=== PATIENT | male | born 1965 | race Caucasian/White ===

== ENCOUNTER 2018-10-29 10:08 | Day surgery (SDC) | payer OTHER ==
[2018-10-29 11:52] LABS: ADD MAN DIFF? NO
[2018-10-29 11:54] LABS: WHITE BLOOD COUNT 5.7 10^3/ul (4.8-10.8)
[2018-10-29 11:54] LABS: BASOPHIL # 0.1 10^3/ul (0.0-0.1); BASOPHILS % 1.1 % (0.0-2.0); EOSINOPHILS # 0.1 10^3/ul (0.0-0.5); EOSINOPHILS % 1.8 % (0.0-7.0); HEMATOCRIT 42.1 % (42.0-52.0); HEMOGLOBIN 14.7 g/dl (14.0-18.0); LYMPHOCYTES # 1.6 10^3/ul (0.8-2.9); LYMPHOCYTES % 28.6 % (15.0-51.0); MEAN CORPUSCULAR HEMOGLOBIN 30.4 pg (29.0-33.0); MEAN CORPUSCULAR HGB CONC 34.9 g/dl (32.0-37.0); MEAN CORPUSCULAR VOLUME 87.2 fl (82.0-101.0); MEAN PLATELET VOLUME 11.1 fl (7.4-10.4); MONOCYTE # 0.7 10^3/ul (0.3-0.9); MONOCYTES % 11.8 % (0.0-11.0); NEUTROPHIL # 3.2 10^3/ul (1.6-7.5); NEUTROPHILS % 56.3 % (39.0-77.0); PLATELET COUNT 186 10^3/UL (140-415); RED BLOOD COUNT 4.83 10^6/ul (4.70-6.10); RED CELL DISTRIBUTION WIDTH 12.3 % (11.5-14.5)
[2018-10-29 12:00] LABS: ADD UMIC YES; UR ASCORBIC ACID 20 mg/dL (NEGATIVE); UR BACTERIA FEW /HPF (NONE SEEN); UR BILIRUBIN (Dip) NEGATIVE (NEGATIVE); UR BLOOD (Dip) 3+ mg/dL (NEGATIVE); UR CLARITY CLOUDY (CLEAR); UR COLOR YELLOW (YELLOW); UR GLUCOSE (Dip) NEGATIVE (NEGATIVE); UR KETONES (Dip) NEGATIVE (NEGATIVE); UR LEUKOCYTE ESTERASE (Dip) 1+ Leu/ul (NEGATIVE); UR MUCUS FEW /HPF (NONE SEEN); UR NITRITE (Dip) NEGATIVE (NEGATIVE); UR RBC > 182 /HPF (0-5); UR SPECIFIC GRAVITY (Dip) 1.023 (1.003-1.030); UR TOTAL PROTEIN (Dip) 2+ mg/dl (NEGATIVE); UR UROBILINOGEN (Dip) NEGATIVE (NEGATIVE); UR WBC 81 /HPF (0-5)
[2018-10-29 12:08] LABS: INR 0.93; PROTIME 12.6 Sec (11.9-14.9)
[2018-10-29 12:09] LABS: PARTIAL THROMBOPLASTIN TIME 28.7 Sec (23.0-35.0)
[2018-10-29 12:12] LABS: ALANINE AMINOTRANSFERASE 44 IU/L (13-69); ALBUMIN 4.2 g/dl (3.3-4.9); ALBUMIN/GLOBULIN RATIO 1.13; ALKALINE PHOSPHATASE 78 IU/L (42-121); ANION GAP 10 (5-13); ASPARTATE AMINO TRANSFERASE 29 IU/L (15-46); BILIRUBIN,INDIRECT 0.8 mg/dl (0-1.1); BILIRUBIN,TOTAL 0.8 mg/dl (0.2-1.3); BLOOD UREA NITROGEN 19 mg/dl (7-20); CALCIUM 9.2 mg/dl (8.4-10.2); CARBON DIOXIDE 24 mmol/L (21-31); CHLORIDE 109 mmol/L (97-110); CREATININE 1.03 mg/dl (0.61-1.24); Estimated GFR > 60 mL/min (>60); GLUCOSE 103 mg/dl (70-220); POTASSIUM 4.2 mmol/L (3.5-5.1); SODIUM 143 mmol/L (135-144); TOTAL PROTEIN 7.9 g/dl (6.1-8.1)
[2018-10-29] MEDS ORDERED: LIDOCAINE 2% (SDV) 5 ML INJ (12:18)
[2018-10-29] MEDS ORDERED: SEVOFLURANE 15 MIN (12:18)
[2018-10-29] MEDS ORDERED: CEFAZOLIN 1 GM INJ (12:18)
[2018-10-29] MEDS ORDERED: MIDAZOLAM 1 MG/ML 2 ML INJ (12:18)
[2018-10-29] MEDS ORDERED: DESFLURANE 15 MIN (12:18)
[2018-10-29] MEDS ORDERED: PROPOFOL 20 ML (12:21)
[2018-10-29] MEDS ORDERED: LACTATED RINGER'S 1,000 ML IV (12:30)
[2018-10-29] MEDS ORDERED: GLYCOPYRROLATE 0.4 MG INJ (13:49)
[2018-10-29] MEDS ORDERED: EPHEDrine 25 MG/5 ML SYG (13:49)
[2018-10-29] MEDS ORDERED: SUCCINYLCHOLINE CHLORIDE 100 MG/5 ML SYG IV (13:49)
[2018-10-29] MEDS ORDERED: NEOSTIGMINE 3 MG/3 ML SYRINGE (13:49)
[2018-10-29] MEDS ORDERED: ROCURONIUM 50 MG INJ (13:49)
[2018-10-29] MEDS ORDERED: ONDANSETRON 4 MG INJ (13:50)
[2018-10-29] MEDS ORDERED: FUROSEMIDE 20 MG INJ (13:56)
[2018-10-29] MEDS ORDERED: OXYCODONE/ACETAMINOPHEN (5/325) TAB PO ×2 (14:30)
[2018-10-29] MEDS ORDERED: HYDROCODONE/APAP (5/325) TAB PO (14:30)
[2018-10-29] MEDS ORDERED: ONDANSETRON 4 MG INJ IV (14:30)
[2018-10-29] MEDS ORDERED: MEPERIDINE 25 MG INJ IV (14:30)
[2018-10-29] MEDS ORDERED: LABETALOL HCL 20MG INJ IV (14:30)
[2018-10-29] MEDS ORDERED: FENTAnyl 50 MCG/ML VIAL IV (14:30)
[2018-10-29] MEDS: ONDANSETRON 4 MG INJ IV (14:56)
[2018-10-29] MEDS: FENTAnyl 50 MCG/ML VIAL IV (14:56)
== END 2018-10-29 19:00 | disposition home or self-care (01) ==
LOC: SDS 10:08
DX: N21.0 Calculus in bladder (principal); N20.0 Calculus of kidney; I10 Essential (primary) hypertension
CPT/HCPCS: 52356; 71045; 74018; 74430; 80053; 81001; 85025; 85610; 85730; 87086

== ENCOUNTER 2018-12-04 13:55 | Day surgery (SDC) | payer OTHER ==
[2018-12-04 07:33] LABS: ADD MAN DIFF? NO
[2018-12-04 07:45] LABS: BASOPHIL # 0.1 10^3/ul (0.0-0.1); BASOPHILS % 1.2 % (0.0-2.0); EOSINOPHILS # 0.2 10^3/ul (0.0-0.5); HEMOGLOBIN 13.9 g/dl (14.0-18.0); LYMPHOCYTES # 1.6 10^3/ul (0.8-2.9); LYMPHOCYTES % 21.1 % (15.0-51.0); MEAN CORPUSCULAR HEMOGLOBIN 30.3 pg (29.0-33.0); MEAN CORPUSCULAR HGB CONC 33.9 g/dl (32.0-37.0); MEAN CORPUSCULAR VOLUME 89.3 fl (82.0-101.0); MEAN PLATELET VOLUME 11.9 fl (7.4-10.4); MONOCYTE # 0.7 10^3/ul (0.3-0.9); MONOCYTES % 9.5 % (0.0-11.0); NEUTROPHIL # 4.7 10^3/ul (1.6-7.5); NEUTROPHILS % 64.7 % (39.0-77.0); PLATELET COUNT 180 10^3/UL (140-415); RED BLOOD COUNT 4.59 10^6/ul (4.70-6.10); RED CELL DISTRIBUTION WIDTH 12.6 % (11.5-14.5)
[2018-12-04 07:45] LABS: WHITE BLOOD COUNT 7.3 10^3/ul (4.8-10.8)
[2018-12-04 08:10] LABS: INR 0.87; PROTIME 11.9 Sec (11.9-14.9); PT RATIO 0.9
[2018-12-04 08:14] LABS: ALANINE AMINOTRANSFERASE 20 IU/L (13-69); ALBUMIN/GLOBULIN RATIO 1.17; ALKALINE PHOSPHATASE 78 IU/L (42-121); ANION GAP 10 (5-13); ASPARTATE AMINO TRANSFERASE 21 IU/L (15-46); BILIRUBIN,INDIRECT 0.6 mg/dl (0-1.1); BILIRUBIN,TOTAL 0.6 mg/dl (0.2-1.3); BLOOD UREA NITROGEN 16 mg/dl (7-20); CALCIUM 8.9 mg/dl (8.4-10.2); CARBON DIOXIDE 23 mmol/L (21-31); CHLORIDE 107 mmol/L (97-110); CREATININE 1.11 mg/dl (0.61-1.24); Estimated GFR > 60 mL/min (>60); GLUCOSE 111 mg/dl (70-220); POTASSIUM 3.8 mmol/L (3.5-5.1); SODIUM 140 mmol/L (135-144); TOTAL PROTEIN 7.4 g/dl (6.1-8.1)
[2018-12-04 08:23] LABS: PARTIAL THROMBOPLASTIN TIME 21.9 Sec (23.0-35.0)
[2018-12-04] MEDS: HYDROmorphONE 1 MG/5 ML IV SYRINGE IV ×3 (11:28→11:51)
[~2018-12-04 13:55] MED LIST: CEFAZOLIN 1 GM INJ; DEXAMETHASONE 4 MG/ML 5 ML INJ; FENTAnyl 50 MCG/ML VIAL; FENTAnyl 50 MCG/ML VIAL IV; HYDROCODONE/APAP (5/325) TAB PO; LABETALOL HCL 20MG INJ IV; LIDOCAINE 2% (SDV) 5 ML INJ; MIDAZOLAM 1 MG/ML 2 ML INJ; ONDANSETRON 4 MG INJ; ONDANSETRON 4 MG INJ IV; OXYCODONE/ACETAMINOPHEN (5/325) TAB PO; PROPOFOL 200 MG INJ
== END 2018-12-04 14:04 | disposition home or self-care (01) ==
LOC: SDS 13:55
DX: N21.0 Calculus in bladder (principal)
CPT/HCPCS: 52310; 71045; 74018; 74430; 80053; 85025; 85610; 85730; 87086; 88300; 93005